=== PATIENT | female | born 1960 | race Caucasian/White ===

== ENCOUNTER 2023-11-03 23:30 | Emergency (ER) | payer BC ==
[2023-11-04] MEDS: Acetaminophen/HYDROcodone 325-10 MG Tab PO ONE (00:45)
[2023-11-04] MEDS: Take Home: Acetaminophen/HYDROcodone 325-5 MG, 5 Tab Pack PO ONE ×2 (01:42→01:43)
== END 2023-11-04 01:46 | disposition home or self-care (01) ==
LOC: DL.ED 23:30
DX: S52.502A Unspecified fracture of the lower end of left radius, initial encounter for closed fracture (principal); V18.4XXA Pedal cycle driver injured in noncollision transport accident in traffic accident, initial encounter; Y93.55 Activity, bike riding
CPT/HCPCS: 29125; 73110; 99283; A9270; 99282